=== PATIENT | male | born 1945 | race Caucasian/White ===

== ENCOUNTER 2024-03-20 14:45 | Emergency (ER) | payer OTHER ==
--- OUTSIDE RECORDS SUMMARY | 2024-03-20 14:47 | XMS REPORT | Continuity of Care Document ---
Author Name Unknown Address [address] [facility] [address] [place] [address] [facility] thconnect Address [address] [facility] [place] [address] Care Team Providers Care Asset Accountant Name Role Phone Nikita Mejia Attending Clinician UnavailWilfrid Frey Attending Clinician Unavailable Wilfrid Dickey Admitting Clinician Unavailable Encounters Start Date/Time End Date/Time Encounter Type Admission Type Attending Clinicians Care Facility Care Department Encounter ID Source 2022-11-28 08:56:00 2022-11-28 11:10:00 Emergency ER Nikita Mejia [facility] [id number] [facility] 2021-10-06 23:06:00 2021-10-07 16:02:00 Inpatient ER Wilfrid Dickey [facility] MED [id number] [facility]
[2024-03-20 15:15] LABS: Absolute Eosinophils 0.3 K/uL (0-0.5); Absolute Lymphocytes (CBC) 1.6 K/uL (0.7-4.9); Absolute Monocytes 0.9 K/uL (0.1-1.3); Absolute Neutrophil 4.2 K/uL (1.8-8.0); Basophils % 0.7 % (0-1.3); Eosinophils % 3.8 % (0-4.4); Hematocrit 42.1 % (39.6-49.0); Lymphocytes % 22.8 % (15.3-44.8); MCH 31.5 pg (27.0-35.0); MCHC 33.4 g/dL (32.0-36.0); MCV 94.5 fL (80-100); MPV 7.8 fL (7.6-11.3); Monocytes % 12.8 % (3.3-12.3); Neutrophils % 59.9 % (41.7-73.7); Nucleated Red Blood Cells % 0.1 % (0-0); Platelets 173 thou/uL (152-406); RBC Red Blood Cell Count 4.45 M/uL (4.33-5.43); Red Cell Distribution Width 13.9 % (12.1-15.2)
[2024-03-20 15:20] LABS: PT Prothrombin Time 12.1 SECONDS (9.5-12.5); PTT, Activated Partial Thromb 33.2 SECONDS (24.3-36.9); Protime INR 1.1
--- NOTE | 2024-03-20 15:29 | RAD REPORT ---
EXAM DESCRIPTION: CT - Ct Stroke Brain Wo Cont - 03/20/2024 3:22 pm CLINICAL HISTORY: Difficulty speaking COMPARISON: none TECHNIQUE: Computed axial tomography of the head was obtained. All CT scans are performed using dose optimization technique as appropriate and may include automated exposure control or mA/KV adjustment according to patient size. FINDINGS: An intracranial bleed is not seen . The ventricles are normal in caliber. No extra-axial fluid collection is noted. No significant hyperdensity within the brain. Mild cerebral atrophy Fluid within the sinuses/ mastoids is not seen. IMPRESSION: No acute intracranial abnormality is seen. If patient's symptoms persist MRI of the bra in would be recommended Dr Alcantar of the emergency room was notified at 3:21 p.m. March 20, 2024
[2024-03-20 15:37] LABS: ALT/SGPT 29 U/L (16-61); AST/SGOT 16 U/L (15-37); Albumin 3.2 g/dL (3.4-5.0); Albumin/Globulin Ratio 0.8 (1.1-1.8); Alkaline Phosphatase 102 U/L (45-117); BUN Blood Urea Nitrogen 17 mg/dL (7-18); Bicarbonate 24 mEq/L (21-32); Bilirubin Total 0.5 mg/dL (0.2-1.0); Globulin 3.8 g/dL (2.3-3.5); Glomerular Filtration Rate 44 ml/min (=/>90); Glucose Level 104 mg/dL (74-106); Magnesium 1.9 mg/dL (1.6-2.4); Sodium Level 138 mEq/L (136-145); Troponin High Sensitivity 19.1 pg/mL (<58.9)
--- NOTE | 2024-03-20 15:48 | RAD REPORT ---
EXAM DESCRIPTION: CTHead angio03/20/2024 3:22 pm CLINICAL HISTORY: Difficulty speaking COMPARISON: none TECHNIQUE: 100 cc Isovue [address] angiogram of the head was obtained. 3D MIPS reconstruction performed. All CT scans are performed using dose optimization technique as appropriate and may include automated exposure control or mA/KV adjustment according to patient size. 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 Other portions are very small. 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 Other portions of the basilar artery are ve ry small. Although the age is indeterminate this probably is a chronic finding for the patient.
--- NOTE | 2024-03-20 15:49 | RAD REPORT ---
EXAM DESCRIPTION: Carlos Angio03/20/2024 3:22 pm CLINICAL HISTORY: Difficulty speaking COMPARISON: None TECHNIQUE: 100 cc Isovue [address] angiogram of the neck was obtained. 3D MIPS reconstruction performed. All CT scans are performed using dose optimization technique as appropriate and may include automated exposure control or mA/KV adjustment according to patient size. FINDINGS: Visualized aortic arch and great vessels unremarkable Plaque within the proximal right internal carotid artery results in an approximately 50% stenosis. Plaque within the proximal to mid left internal carotid artery results in an approximately 70% stenos is. An ulcerated plaque is present at this level Mild plaque external carotid and common carotid arteries. Vertebral arteries are small. The left vertebral artery terminates into the PICA No dissection seen [place] crieria Mild stenosis 0 to 49 % Moderate stenosis 50-69% Severe stenosis 70-99% IMPRESSION: Severe stenosis proximal to mid left internal carotid artery with ulcerated plaque Moderate stenosis proximal right internal carotid artery
[2024-03-20 15:54] LABS: Bilirubin Direct < 0.2 mg/dL (0-0.2); Bilirubin Indirect, Calculated 0.3 mg/dL (0.2-0.8)
--- NOTE | 2024-03-20 15:59 | ER ---
Nurse's Notes [facility] Name: Gabriel Eden Age: 78 yrs Sex: Male : 1945 Arrival Date: 03/20/2024 Time: 14:45 Bed 20 Private MD: Diagnosis: Dysarthria following cerebral infarction Presentation: 03/20 14:55 Ebola Screen: No symptoms or risks identified at this time. Initial Sepsis Screen: Does ph the patient meet any 2 criteria? No. Patient's initial sepsis screen is negative. Does the patient have a suspected source of infection? No. Patient's initial sepsis screen is negative. Risk Assessment: Do you want to hurt yourself or someone else? Patient reports no desire to harm self or others. 15:07 Chief complaint: Patient states: he has had intermittent stuttering for two weeks, ap3 which typically gets better within an hour. however today's episode started at 1230, and has not improved. Coronavirus screen: At this time, the client does not indicate any symptoms associated with coronavirus-19. Onset of symptoms was March 20, 2024 at 12:30. 15:07 Method Of Arrival: Wheelchair ap3 15:07 Acuity: CARLOS 2 ap3 18:41 No acute neurological deficit is noted. Pre-hospital glucose is not applicable to this ph patient. Triage Assessment: 15:09 The onset of the patients symptoms was March 20, 2024 at 12:30. General: Appears in no ap3 apparent distress. Behavior is calm, cooperative. Pain: Denies pain. Neuro: Level of Consciousness is awake, alert, obeys commands, Oriented to person, place, time, situation, Appropriate for age Speech stutter. Reports difficulty speaking. Cardiovascular: Patient's skin is warm and dry. Respiratory: Airway is patent Respiratory effort is even, unlabored, Respiratory pattern is regular, symmetrical. Stroke Activation: Symptom onset < 3 hours Physician: ED Attending; Name: ; Notified At: 14:59; Arrived At: 14:59 Physician: Mid-Level Provider; Name: ; Notified At: 14:59; Arrived At: Physician: [not used]; Name: ; Notified At: ; Arrived At: Physician: [not used]; Name: ; Notified At: ; Arrived At: Physician: [not used]; Name: ; Notified At: ; Arrived At: Historical: - Allergies: 15:10 No Known Allergies; ap3 - Immunization history:: Adult Immunizations unknown. - Infectious Disease History:: Denies. - Social history:: Smoking status: Patient denies any tobacco usage or history of. Screenin:54 Abuse screen: Denies threats or abuse. Denies injuries from another. Nutritional ph screening: No deficits noted. Tuberculosis screening: No symptoms or risk factors identified. 18:41 [facility] ED Fall Risk Assessment (Adult) History of falling in the last 3 months, ph including since admission No falls in past 3 months (0 pts) Confusion or Disorientation No (0 pts) Intoxicated or Sedated No (0 pts) Impaired Gait No (0 pts) Mobility Assist Device Used No (0 pt) Altered Elimination No (0 pt) Score/Fall Risk Level 0 - 2 = Low Risk Oriented to surroundings, Maintained a safe environment, Hourly rounding (assess needs \T\ fall precautionary measures) done, Used ambulatory aids as needed (educated on \T\ assisted with). Assessment: 15:00 VAN Scoring: Arm Drift: Patients demonstrates NO arm weakness. Patient is VAN Negative. ph General: Appears in no apparent distress. comfortable, Behavior is calm, cooperative. Pain: Denies pain. Neuro: Level of Consciousness is awake, alert, obeys commands, Oriented to person, place, time, situation, Pediatric Clinical Dietician are equal bilaterally Moves all extremities. Full function. Neuro: Reports stuttering, garbled speech that is intermittent. Cardiovascular: Capillary refill < 3 seconds in bilateral fingers Patient's skin is warm and dry. Respiratory: Airway is patent Respiratory effort is even, unlabored. GI: No signs and/or symptoms were reported involving the gastrointestinal system. Musculoskeletal: Circulation, motion, and sensation intact. Range of motion: intact in all extremities. 15:10 Reassessment: Pt taken to CT by this RN. ph 15:25 Reassessment: Patient appears in no apparent distress at this time. Patient and/or ph family updated on plan of care and expected duration. Pain level reassessed. Patient is alert, oriented x 3, equal unlabored respirations, skin warm/dry/pink. 15:45 Frederick Swallow Protocol Exclusion Criteria: Unable to remain alert for testing: No NPO ph for medical/surgical reason by provider order No Tracheostomy tube present No No thin liquids due to preexisting dysphagia/baseline modified diet thickened liquids No Exclusion Criteria Result: Proceed Brief Cognitive Screen What is your name? Normal, Where are you right now? Normal, What year is it? Normal. Oral Mechanism Examination Facial Symmetry: Normal, Motion: Normal, Lip Closure: Normal, Oral Mechanism Result: Normal. 3 oz Water Swallow Challenge: Pt able to drink all water without stopping, coughing, choking or throat clearing: Yes Result: PASS MD Notified: Deacon Bettencourt DO. TNKase (Tenecteplase) Screening: Contraindications: Patient reports onset of signs and symptoms of stroke greater than 6 hours ago:. 18:55 Reassessment: Patient appears in no apparent distress at this time. Patient and/or ph family updated on plan of care and expected duration. Pain level reassessed. Patient is alert, oriented x 3, equal unlabored respirations, skin warm/dry/pink. report called to Marie BENITO at [facility], awaiting EMS for transport. 19:00 General: Appears in no apparent distress. comfortable, Behavior is calm, cooperative, jw7 appropriate for age. Pain: Denies pain. Neuro: Level of Consciousness is awake, alert, obeys commands, Oriented to person, place, time, situation, Reports stuttering and garbled speech that comes and goes. . 19:00 Cardiovascular: Heart tones S1 S2 present Capillary refill < 3 seconds Clubbing of nail jw7 beds is absent JVD is absent Patient's skin is warm and dry. Respiratory: Airway is patent Trachea midline Respiratory effort is even, unlabored, Respiratory pattern is regular, symmetrical, Breath sounds are clear bilaterally. GI: Abdomen is round non-distended, Bowel sounds present X 4 quads. Abd is soft and non tender X 4 quads. : No deficits noted. No signs and/or symptoms were reported regarding the genitourinary system. EENT: No deficits noted. No signs and/or symptoms were reported regarding the EENT system. Derm: Skin is intact, is healthy with good turgor, Skin is dry, Skin is normal, Skin temperature is warm. Musculoskeletal: Circulation, motion, and sensation intact. Range of motion: intact in all extremities. 19:00 VAN Scoring: Arm Drift: Patients demonstrates NO arm weakness. Patient is VAN Negative. jw7 Vital Signs: 15:07 BP 133 / 75; Pulse 84; Resp 18; Temp 98.2; Pulse Ox 98% ; Weight 119.29 kg; Height 6 ap3 ft. 2 in. ; 16:00 BP 144 / 64; Pulse 64; Resp 18; Pulse Ox 98% on R/A; ph 17:00 BP 147 / 66; Pulse 66; Resp 18; Pulse Ox 97% on R/A; ph 18:15 BP 142 / 64; Pulse 76; Resp 18; Pulse Ox 97% on R/A; ph 19:15 BP 135 / 62; Pulse 71; Resp 16 S; Pulse Ox 97% on R/A; jw7 15:07 Body Mass Index 33.77 (119.29 kg, 187.96 cm) ap3 Vitals: 18:15 Cardiac Rhythm Assessment Sinus rhythm. ph NIH Stroke Scale Scores: 15:00 NIHSS Score: 1 ph 15:40 NIHSS Score: 1 ms3 19:00 NIHSS Score: 0 jw7 ED Course: 14:47 Patient arrived in ED. ap3 14:48 Deacon Bettencourt DO is Attending Physician. ms3 14:54 Marsha Cooper, RN is Primary Nurse. ph 14:55 Patient has correct armband on for positive identification. Bed in low position. Call ph light in reach. Side rails up X 1. Client placed on continuous cardiac and pulse oximetry monitoring. NIBP monitoring applied. surveillance monitor on. Pulse ox on. 14:56 Arm band placed on Patient placed in an exam room, on a stretcher, on quality assurance monitor chassis, ph on pulse oximetry. 15:05 RN/LENS ASSISTANT escort patient out of department to CT scan. cm10 15:05 Initial lab(s) drawn, by md, sent to lab. Inserted saline lock: 18 gauge in right cm10 wrist, using aseptic technique. Blood collected. 15:06 Basic Metabolic Panel Sent. cm10 15:06 CBC with Diff Sent. cm10 15:06 Hepatic Function Sent. cm10 15:06 High Sensitivity Troponin Sent. cm10 15:06 Magnesium Sent. cm10 15:06 Protime (+inr) Sent. cm10 15:06 Ptt, Activated Sent. cm10 15:09 Triage completed. ap3 15:24 CT Head Angio In Process Unspecified. EDMS 15:24 CT Neck Angio In Process Unspecified. EDMS 15:24 CT Stroke Brain w/o Contrast In Process Unspecified. EDMS 16:00 Stroke CXR 1 View In Process Unspecified. EDMS 18:41 No provider procedures requiring assistance completed. Patient transferred, IV remains ph in place. 19:00 Provided Education on: Use of Call Light. jw7 19:00 Report received from Judit SAUCEDA. jw7 Administered Medications: No medications were administered Medication: 14:55 VIS not applicable for this client. ph Outcome: 15:58 ER care complete, transfer ordered by . ms3 18:55 Transferred by ground EMS to [facility] Transfer form completed. ph X-rays sent w/ patient. 18:55 Condition: stable 18:55 Instructed on the need for admit, 19:36 Patient left the ED. jw7 NIH Stroke Scale - NIH Stroke Score Date: 03/20/2024 Time: 15:00 Total Score = 1 10. Dysarthria (speech clarity - read or repeat words) - 1(Mild to Moderate) 11. Extinction and Inattention (visual/tactile/auditory/spatial/personal) - 0(No abnormality) 1a. Level of Consciousness (LOC) - 0(Alert) 1b. Level of Consciousness (LOC) (Month \T\ Age) - 0(Both) 1c. LOC Commands (Open \T\ Closes Eyes/Mud Trucker) - 0(Both) 2. Best Gaze (Lateral Gaze Paresis) - 0(Normal) 3. Visual Field Loss - 0(No visual loss) 4. Facial Palsy - 0(Normal) 5a. Left Arm: Motor (10-second hold) - 0(No drift) 5b. Right Arm: Motor (10-second hold) - 0(No drift) 6a. Left Leg: Motor (5-second hold - always test supine) - 0(No drift) 6b. Right Leg: Motor (5-second hold - always test supine) - 0(No drift) 7. Limb Ataxia (finger/nose \T\ heel/bryant - test with eyes open) - 0(Absent) 8. Sensory Loss (pinprick arms/legs/face) - 0(Normal) 9. Best Language: Aphasia (description/naming/reading) - 0(No aphasia) Initials: NIH Stroke Scale - NIH Stroke Score Date: 03/20/2024 Time: 15:40 Total Score = 1 10. Dysarthria (speech clarity - read or repeat words) - 0(Normal) 11. Extinction and Inattention (visual/tactile/auditory/spatial/personal) - 0(No abnormality) 1a. Level of Consciousness (LOC) - 0(Alert) 1b. Level of Consciousness (LOC) (Month \T\ Age) - 0(Both) 1c. LOC Commands (Open \T\ Closes Eyes/Mud Trucker) - 0(Both) 2. Best Gaze (Lateral Gaze Paresis) - 0(Normal) 3. Visual Field Loss - 0(No visual loss) 4. Facial Palsy - 0(Normal) 5a. Left Arm: Motor (10-second hold) - 0(No drift) 5b. Right Arm: Motor (10-second hold) - 0(No drift) 6a. Left Leg: Motor (5-second hold - always test supine) - 0(No drift) 6b. Right Leg: Motor (5-second hold - always test supine) - 0(No drift) 7. Limb Ataxia (finger/nose \T\ heel/bryant - test with eyes open) - 0(Absent) 8. Sensory Loss (pinprick arms/legs/face) - 0(Normal) 9. Best Language: Aphasia (description/naming/reading) - 1(Mild to moderate aphasia) Initials: ms3 NIH Stroke Scale - NIH Stroke Score Date: 03/20/2024 Time: 19:00 Total Score = 0 10. Dysarthria (speech clarity - read or repeat words) - 0(Normal) 11. Extinction and Inattention (visual/tactile/auditory/spatial/personal) - 0(No abnormality) 1a. Level of Consciousness (LOC) - 0(Alert) 1b. Level of Consciousness (LOC) (Month \T\ Age) - 0(Both) 1c. LOC Commands (Open \T\ Closes Eyes/Mud Trucker) - 0(Both) 2. Best Gaze (Lateral Gaze Paresis) - 0(Normal) 3. Visual Field Loss - 0(No visual loss) 4. Facial Palsy - 0(Normal) 5a. Left Arm: Motor (10-second hold) - 0(No drift) 5b. Right Arm: Motor (10-second hold) - 0(No drift) 6a. Left Leg: Motor (5-second hold - always test supine) - 0(No drift) 6b. Right Leg: Motor (5-second hold - always test supine) - 0(No drift) 7. Limb Ataxia (finger/nose \T\ heel/bryant - test with eyes open) - 0(Absent) 8. Sensory Loss (pinprick arms/legs/face) - 0(Normal) 9. Best Language: Aphasia (description/naming/reading) - 0(No aphasia) Initials: jw7 Signatures: Dispatcher [employer] EDMarsha Harrell, RN RN Shante Elliott RN RN ap3 Deacon Bettencourt, DO ms3 Natalia Mays RN RN jw7 Darleen Lott, RN RN cm10
--- NOTE | 2024-03-20 15:59 | EDPHYS ---
Physician Documentation [facility] Name: Gabriel Eden Age: 78 yrs Sex: Male : 1945 Arrival Date: 03/20/2024 Time: 14:45 Bed 20 Private MD: ED Physician Deacon Bettencourt HPI: 03/20 15:40 This 78 yrs old Male presents to ER via Wheelchair with complaints of Stuttering Speech.ms3 15:40 78-year-old male past medical history of hypertension, hyperlipidemia [place] [facility] [place] for stuttering speech. Patient states his stuttering has been intermittent over the last 2 weeks and began again approximately 2 hours prior to arrival. Patient notes he had bilateral lower extremity weakness approximately 1 hour prior to arrival. Patient sought care at the [facility] and they suggested patient to come to the emergency department. Patient endorses nausea. Patient denies vomiting or headache. Historical: - Allergies: 15:10 No Known Allergies; ap3 - Immunization history:: Adult Immunizations unknown. - Infectious Disease History:: Denies. - Social history:: Smoking status: Patient denies any tobacco usage or history of. ROS: 15:40 Constitutional: Negative for fever, and chills. Neck: Negative for injury, pain, and ms3 swelling, Cardiovascular: Negative for chest pain, and palpitations. Respiratory: Negative for shortness of breath, cough, wheezing, and pleuritic chest pain, Abdomen/GI: Negative for abdominal pain, nausea, vomiting, diarrhea, and constipation, MS/Extremity: Negative for injury and deformity, Skin: Negative for injury, rash, and discoloration, 15:40 Neuro: Positive for stuttering speech, Exam: 15:40 Radiologist reports: negative ms3 15:40 Constitutional: This is a well developed, well nourished patient who is awake, alert, and in no acute distress. Head/Face: Normocephalic, atraumatic. Neck: Trachea midline, no cervical lymphadenopathy. Supple, full range of motion without nuchal rigidity, or vertebral point tenderness. No Meningismus. Chest/axilla: Normal chest wall appearance and motion. Nontender with no deformity. Cardiovascular: Regular rate and rhythm with a normal S1 and S2. No gallops, murmurs, or rubs. Normal PMI, no JVD. No pulse deficits. Respiratory: Lungs have equal breath sounds bilaterally, clear to auscultation and percussion. No rales, rhonchi or wheezes noted. No increased work of breathing, no retractions or nasal flaring. Abdomen/GI: Soft, non-tender, with normal bowel sounds. No distension or tympany. No guarding or rebound. No evidence of tenderness throughout. Skin: Warm, dry with normal turgor. Normal color with no rashes, no lesions, and no evidence of cellulitis. MS/ Extremity: Pulses equal, no cyanosis. Neurovascular intact. Full, normal range of motion. 15:40 Neuro: Orientation: is normal, to person, place, time \T\ situation. Mentation: is normal, Memory: is normal, Cranial nerves: CN II- XII are normal as tested, Cerebellar function: is grossly normal, normal finger to nose testing, 15:49 ECG was reviewed by the Attending Physician. ms3 Vital Signs: 15:07 BP 133 / 75; Pulse 84; Resp 18; Temp 98.2; Pulse Ox 98% ; Weight 119.29 kg; Height 6 ap3 ft. 2 in. ; 16:00 BP 144 / 64; Pulse 64; Resp 18; Pulse Ox 98% on R/A; ph 17:00 BP 147 / 66; Pulse 66; Resp 18; Pulse Ox 97% on R/A; ph 18:15 BP 142 / 64; Pulse 76; Resp 18; Pulse Ox 97% on R/A; ph 19:15 BP 135 / 62; Pulse 71; Resp 16 S; Pulse Ox 97% on R/A; jw7 15:07 Body Mass Index 33.77 (119.29 kg, 187.96 cm) ap3 NIH Stroke Scale Scores: 15:00 NIHSS Score: 1 ph 15:40 NIHSS Score: 1 ms3 19:00 NIHSS Score: 0 jw7 MDM: 15:02 ED course: Discussed TNKase with patient and his . Patient declines TNKase at this ms3 time.. 15:08 Patient medically screened. ms3 15:40 Differential diagnosis: CVA, TIA, metabolic disorder. ms3 17:52 Data reviewed: vital signs, nurses notes, and as a result, I will Discussed case with wi3 [facility] physician and she accepts patient. All questions answered.. Consideration of Admission/Observation Will transfer patient. Management of patient was discussed with the following: [facility]. 03/20 15:00 Order name: Basic Metabolic Panel; Complete Time: 15:58 ms3 03/20 15:00 Order name: CBC with Diff; Complete Time: 15:50 ms3 03/20 15:00 Order name: Hepatic Function; Complete Time: 15:58 ms3 03/20 15:00 Order name: High Sensitivity Troponin; Complete Time: 15:58 ms3 03/20 15:00 Order name: Magnesium; Complete Time: 15:58 ms3 03/20 15:00 Order name: Protime (+inr); Complete Time: 15:50 ms3 03/20 15:00 Order name: Ptt, Activated; Complete Time: 15:50 ms3 03/20 15:35 Order name: CREATININE WHOLE BLOOD; Complete Time: 15:50 EDMS 03/20 15:00 Order name: CT Head Angio; Complete Time: 15:50 ms3 03/20 15:00 Order name: CT Neck Angio; Complete Time: 15:50 ms3 03/20 15:00 Order name: CT Stroke Brain w/o Contrast; Complete Time: 15:50 ms3 03/20 15:00 Order name: Stroke CXR 1 View; Complete Time: 17:02 ms3 03/20 15:00 Order name: Accucheck; Complete Time: 15:25 ms3 03/20 15:00 Order name: Cardiac monitoring; Complete Time: 15:25 ms3 03/20 15:00 Order name: EKG - Nurse/Tech; Complete Time: 15:38 ms3 03/20 15:00 Order name: IV Saline Lock; Complete Time: 15:06 ms3 03/20 15:00 Order name: Labs collected and sent; Complete Time: 15:06 ms3 03/20 15:00 Order name: NPO; Complete Time: 15:25 ms3 03/20 15:01 Order name: O2 Per Protocol; Complete Time: 15:25 ms3 03/20 15:01 Order name: O2 Sat Monitoring; Complete Time: 15:38 ms3 03/20 15:01 Order name: Stroke Swallow Screen; Complete Time: 15:38 ms3 EC:49 Rate is 76 beats/min. Rhythm is regular. QRS [place] is Normal. CA interval is normal. QRS ms3 interval is normal. Clinical impression: Normal ECG. Interpreted by me. Reviewed by me. Administered Medications: No medications were administered Disposition Summary: 03/20/24 15:58 Transfer Ordered Notes: Transfer Location: [facility] ms3 Reason: Higher level of care ms3 Condition: Stable ms3 Problem: new ms3 Symptoms: are unchanged ms3 Accepting Physician: (03/20/24 19:36) jw7 Diagnosis - Dysarthria following cerebral infarction ms3 Forms: - Medication Reconciliation Form ms3 - SBAR form ms3 NIH Stroke Scale - NIH Stroke Score Date: 03/20/2024 Time: 15:00 Total Score = 1 10. Dysarthria (speech clarity - read or repeat words) - 1(Mild to Moderate) 11. Extinction and Inattention (visual/tactile/auditory/spatial/personal) - 0(No abnormality) 1a. Level of Consciousness (LOC) - 0(Alert) 1b. Level of Consciousness (LOC) (Month \T\ Age) - 0(Both) 1c. LOC Commands (Open \T\ Closes Eyes/Termite Technician) - 0(Both) 2. Best Gaze (Lateral Gaze Paresis) - 0(Normal) 3. Visual Field Loss - 0(No visual loss) 4. Facial Palsy - 0(Normal) 5a. Left Arm: Motor (10-second hold) - 0(No drift) 5b. Right Arm: Motor (10-second hold) - 0(No drift) 6a. Left Leg: Motor (5-second hold - always test supine) - 0(No drift) 6b. Right Leg: Motor (5-second hold - always test supine) - 0(No drift) 7. Limb Ataxia (finger/nose \T\ heel/bryant - test with eyes open) - 0(Absent) 8. Sensory Loss (pinprick arms/legs/face) - 0(Normal) 9. Best Language: Aphasia (description/naming/reading) - 0(No aphasia) Initials: ph NIH Stroke Scale - NIH Stroke Score Date: 03/20/2024 Time: 15:40 Total Score = 1 10. Dysarthria (speech clarity - read or repeat words) - 0(Normal) 11. Extinction and Inattention (visual/tactile/auditory/spatial/personal) - 0(No abnormality) 1a. Level of Consciousness (LOC) - 0(Alert) 1b. Level of Consciousness (LOC) (Month \T\ Age) - 0(Both) 1c. LOC Commands (Open \T\ Closes Eyes/Termite Technician) - 0(Both) 2. Best Gaze (Lateral Gaze Paresis) - 0(Normal) 3. Visual Field Loss - 0(No visual loss) 4. Facial Palsy - 0(Normal) 5a. Left Arm: Motor (10-second hold) - 0(No drift) 5b. Right Arm: Motor (10-second hold) - 0(No drift) 6a. Left Leg: Motor (5-second hold - always test supine) - 0(No drift) 6b. Right Leg: Motor (5-second hold - always test supine) - 0(No drift) 7. Limb Ataxia (finger/nose \T\ heel/bryant - test with eyes open) - 0(Absent) 8. Sensory Loss (pinprick arms/legs/face) - 0(Normal) 9. Best Language: Aphasia (description/naming/reading) - 1(Mild to moderate aphasia) Initials: ms3 NIH Stroke Scale - NIH Stroke Score Date: 03/20/2024 Time: 19:00 Total Score = 0 10. Dysarthria (speech clarity - read or repeat words) - 0(Normal) 11. Extinction and Inattention (visual/tactile/auditory/spatial/personal) - 0(No abnormality) 1a. Level of Consciousness (LOC) - 0(Alert) 1b. Level of Consciousness (LOC) (Month \T\ Age) - 0(Both) 1c. LOC Commands (Open \T\ Closes Eyes/Termite Technician) - 0(Both) 2. Best Gaze (Lateral Gaze Paresis) - 0(Normal) 3. Visual Field Loss - 0(No visual loss) 4. Facial Palsy - 0(Normal) 5a. Left Arm: Motor (10-second hold) - 0(No drift) 5b. Right Arm: Motor (10-second hold) - 0(No drift) 6a. Left Leg: Motor (5-second hold - always test supine) - 0(No drift) 6b. Right Leg: Motor (5-second hold - always test supine) - 0(No drift) 7. Limb Ataxia (finger/nose \T\ heel/bryant - test with eyes open) - 0(Absent) 8. Sensory Loss (pinprick arms/legs/face) - 0(Normal) 9. Best Language: Aphasia (description/naming/reading) - 0(No aphasia) Initials: jw7 Signatures: Dispatcher [employer] EDMarsha Harrell, RN RN Shante Mcnair RN RN ap3 Deacon Bettencourt DO DO ms3 Natalia Mays RN RN jw7 Corrections: (The following items were deleted from the chart) 15:01 15:01 Head Angio+CT.RAD.BRZ ordered. EDMS EDMS 15:01 15:01 Neck Angio+CT.RAD.BRZ ordered. EDMS EDMS 15:01 15:01 CT-STROKE BRAIN W/O CONTRAST+CT.RAD.BRZ ordered. EDMS EDMS 15:01 15:01 Chest Single View+RAD.RAD.BRZ ordered. EDMS EDMS 19:36 15:58 ms3 jw7
--- NOTE | 2024-03-20 16:51 | RAD REPORT ---
EXAM DESCRIPTION: Maria Elena Single View03/20/2024 3:59 pm CLINICAL HISTORY: Difficulty speaking COMPARISON: none FINDINGS: Medial mid left lung hazy. Bilateral interstitial opacities are present. Heart probably mildly enlarged IMPRESSION: Medial mid left lung hazy. This may be secondary to infiltrate, mass or epicardial fat. CT chest recommended Bilateral interstitial opacities having more chronic than acute appearance
[2024-03-20 20:11] VITALS: BP 135/62; TEMP 98.2; O2SAT 97
--- NOTE | 2024-03-23 17:02 | EKG ---
Test Date: 2024-03-20 Test Time: 15:31:10 [place]: PH MEASUREMENT RESULTS: Intervals: Rate: 76 ID: [id number] QRSD: 86 QT: 382 QTc: 429 [place]: P: 67 ID: [id number] QRS: 72 T: 67 INTERPRETIVE STATEMENTS: Sinus rhythm with occasional premature ventricular complexes Otherwise normal ECG No previous ECG available for comparison Electronically Signed On 03-23-24 16:52:12 CDT by Christopher Russell
== END 2024-03-20 19:36 ==
LOC: ER 14:45
DX: I69.322 Dysarthria following cerebral infarction (principal); R29.701 NIHSS score 1
CPT/HCPCS: 93005; 85025; 80048; 36415; 83735; 85610; 82565; 80076; 85730; 84484; 70496; 70498; 70450; 71045; 99285; Q9967